=== PATIENT | male | born 1950 | race Caucasian/White ===

== ENCOUNTER 2019-08-28 08:08 | Inpatient (IN) ==
--- NOTE | 2019-08-16 07:52 | ANES ---
Anesthesia Pre Procedure Eval HOME MEDICATIONS albuterol sulfate 90 mcg/actuation aerosol inhaler 2 inh IH Q8H PRN 07/11/19 [Last Taken Unknown] aspirin 81 mg tablet,delayed release 81 mg PO DAILY 07/11/19 [Last Taken Unknown] cetirizine 10 mg tablet 5 mg PO DAILY 07/11/19 [Last Taken Unknown] cholecalciferol (vitamin D3) 50 mcg (2,000 unit) capsule 2,000 unit PO DAILY 07/11/19 [Last Taken Unknown] docusate sodium 100 mg capsule 100 mg PO DAILY 07/11/19 [Last Taken Unknown] furosemide 40 mg tablet 40 mg PO QAM 07/11/19 [Last Taken Unknown] glipizide 5 mg tablet 5 mg PO DAILY 07/11/19 [Last Taken Unknown] losartan 25 mg tablet 12.5 mg PO DAILY tab 07/11/19 [Last Taken Unknown] metformin 500 mg tablet 1,000 mg PO BID tab 07/11/19 [Last Taken Unknown] metoprolol succinate 100 mg capsule sprinkle, ext. release 24 hr 150 mg PO BID ea 07/11/19 [Last Taken Unknown] omeprazole 20 mg capsule,delayed release 20 mg PO DAILY 07/11/19 [Last Taken Unknown] oxybutynin chloride 5 mg tablet 5 mg PO TID PRN 07/11/19 [Last Taken Unknown] potassium citrate 10 mEq (1,080 mg) tablet,extended release 10 meq PO DAILY 07/11/19 [Last Taken Unknown] simvastatin 40 mg tablet 40 mg PO DAILY 07/11/19 [Last Taken Unknown] spironolactone 25 mg tablet 25 mg PO DAILY 07/11/19 [Last Taken Unknown] tamsulosin 0.4 mg capsule 0.4 mg PO DAILY 07/11/19 [Last Taken Unknown] Allergies/Adverse Reactions: Allergies Allergy/AdvReac Type Severity Reaction Status Date / Time cortisone Allergy Mild RASH Verified 08/15/19 11:12 - Planned Procedure Planned Procedure: Right Total Knee Arthroplasty Medication List Reviewed:: Yes Allergies Verified: Yes Medical History (Last Reviewed 08/16/19 @ 07:49 by Stalin Pires CRNA) Diabetes mellitus (Chronic) Aortic aneurysm (Chronic) Onset Date: ~2015 5.3 in size PTSD (post-traumatic stress disorder) (Chronic) Ventricular fibrillation (Chronic) Sleep apnea (Chronic) Pain in right knee (Chronic) Osteoarthritis of knee (Chronic) Obesity (Chronic) Myocardial degeneration (Chronic) Low back pain (Chronic) Lumbago without sciatica (Chronic) Joint pain (Chronic) Insomnia (Chronic) Impotence (Chronic) GERD (gastroesophageal reflux disease) (Chronic) Chronic systolic congestive heart failure (Chronic) Chest pain (Chronic) Automatic implantable cardiac defibrillator in situ (Chronic) Amnestic disorder (Chronic) Umbilical hernia Surgical History (Last Reviewed 08/16/19 @ 07:49 by Stalin Pires CRNA) Hip joint replacement status Onset Date: ~2008 Right hip- [place] History of left knee replacement Onset Date: ~2014 [facility] History of tonsillectomy Family History (Last Reviewed 08/16/19 @ 07:49 by Stalin Pires CRNA) Father Hypertension Mother Hypochondria Paranoid schizophrenia - Family Anesthesia History Family History:: no untoward family reactions to anesthesia - Airway/Neck/Teeth Within Normal Limits:: Yes Teeth Condition: intact Denture Type: None Neck Exam: limited range of motion Mallampatti Score: 3 Thyromental (T-M) distance: > 6 cm Mandibulo Hyoid distance: > 3 cm - Respiratory Respiratory Physical: lungs clear Smoking Status: Former smoker Sleep Apnea currently treated: No Sleep Apnea by current assessment: Yes Discussed Risks/Treatment of MONSE: Yes - Cardiovascular Cardiac History: CAD, hypertension, other - implanted defibrillator Tolerate Activity: Poor Heart Sounds: Irregular - Gastrointestinal NPO since: instructed npo after mn - Anesthesia Assessment and Plan ASA Class: PS, III Anesthesia Type Plan: Spinal - adductor canal block Planned difficult intubation/equipment available: No
[~2019-08-28 08:08] MED LIST: MORPHINE SULFATE 15 MG TABLET.SA PO PRN; ROPIVACAINE HCL/PF 100 MG, EPINEPHrine 0.2 MG, KETOROLAC TROMETHAMINE 30 MG in NORMAL S... IJ PRN; TRANEXAMIC ACID 1,000 MG in NORMAL SALINE 100 ML IV PRN; ceFAZolin SODIUM 1 GM VIAL IV PRN
[2019-08-28] MEDS ORDERED: BUPIVACAINE HCL/EPINEPHRINE/PF 30 ML VIAL IJ ONE (08:16)
[2019-08-28] MEDS ORDERED: MIDAZOLAM HCL/PF 1 MG/ML VIAL ONE ×2 (08:16→09:20)
[2019-08-28] MEDS ORDERED: EPINEPHrine 1 MG/ML AMPUL ONE (08:16)
[2019-08-28] MEDS ORDERED: PROPOFOL VIAL IV ONE (08:16)
[2019-08-28] MEDS ORDERED: ceFAZolin SODIUM 1 GM VIAL ONE (08:41)
[2019-08-28] MEDS: RINGER'S SOLUTION,LACTATED 1,000 ML IV PRN ×2 (09:42→11:10)
--- NOTE | 2019-08-28 11:51 | ANES ---
Anesthesia Procedure Note Procedure Note: ANESTHESIA PROCEDURE NOTE Date of Procedure: 08/28/2019 Time of procedure: 10:20 AM. Performed by: KIMO Reynolds CRNA, MSN Computational Biologist: Mayra Kenny RN. Preprocedure diagnosis: Post total knee arthroplasty pain. Post procedure diagnosis: Same. Procedure: Right adductor Canal Block. Indications: Post right total knee arthroplasty pain relief. Findings: See below. Details of the procedure: The patient was brought to OR #2 and placed in supine position. The patient's right femoral area to the knee was prepped with chlorhexidine and using ultrasound guidance the right femoral artery and nerve was identified and then followed to the level of the adductor canal. Lidocaine 1% was infiltrated to the skin of the intended injection site. Under ultrasound guidance the saphenous nerve was approached with visualization of a 4 inch shielded block needle. Once saphenous nerve was identified with proximity to the needle tip, the saphenous nerve was surrounded with 25 mL bupivacaine 0.5% with 1-200,000 epinephrine. Please see radiology/ultrasound report for details and retained images of the procedure. EBL: 0 Fluids: N/A. Specimen: N/A. Post procedure condition: The patient tolerated the procedure well. No complications were noted. Thank you for this consultation. John Santiago CRNA, ARNP, MSN
[2019-08-28] MEDS ORDERED: MORPHINE SULFATE 2 MG/ML DISP.SYRIN IV PRN (12:48)
[2019-08-28] MEDS ORDERED: ZOLPIDEM TARTRATE 5 MG TABLET PO PRN (12:48)
[2019-08-28] MEDS ORDERED: MAG HYDROX/ALUMINUM HYD/SIMETH 30 ML UDC PO PRN (12:48)
[2019-08-28] MEDS ORDERED: ONDANSETRON HCL/PF 2 MG/ML VIAL IV PRN (12:48)
[2019-08-28] MEDS ORDERED: RINGER'S SOLUTION,LACTATED 1,000 ML IV PRN (12:48)
[2019-08-28] MEDS ORDERED: diphenhydrAMINE HCL 50 MG/ML VIAL IV PRN (12:48)
[2019-08-28] MEDS ORDERED: MAGNESIUM HYDROXIDE 30 ML UDC PO PRN (12:48)
[2019-08-28] MEDS ORDERED: ACETAMINOPHEN 500 MG TABLET PO PRN (12:48)
[2019-08-28] MEDS ORDERED: ALBUTEROL SULFATE 2.5 MG/0.5 ML VIAL.NEB IH PRN (12:50)
[2019-08-28] MEDS ORDERED: OXYBUTYNIN CHLORIDE 5 MG TABLET PO PRN (12:50)
--- NOTE | 2019-08-28 12:55 | OR ---
Operative Report - Dictated Report Narrative: Date: 08/28/2019 Preoperative diagnosis: Right knee degenerative joint disease. Postoperative diagnosis: Right knee degenerative joint disease. Procedure: Right total knee arthroplasty. Surgeon: Que Quinones M.D. Command And Control Specialist: Jovanni Recinos PA-C (provided and essential set of skilled, educated hands that assisted with transfer, positioning, prepping, draping, manipulation, retraction, placement of jigs, injection, insertion of implants, irrigation, closure wounds, and dressings all of which could not be performed by the available surgical crew) Anesthesia: Spinal with regional block, general, and local periarticular joint injection. Complications: None Specimens: Bone. Estimated blood loss: Minimal. Tourniquet time: 100 Minutes at 325 millimeters of mercury. Retained implants: Depuy Attune size 6 right lugged cemented posterior stabilized femoral component . Size 6 fixed-bearing cemented tibial platform. 6 by 7 millimeter posterior stabilized cross-linked tibial insert. 38 millimeter medialized patella button. Indications: Mr. Grove is a 69-year-old gentleman who has had longstanding right knee pain and arthrosis. This patient was followed in my clinic for period of time with significant complaints of right knee pain consistent with arthritic ch anges. He had failed conservative measures including, but not limited to, activity modification, passage of time, medications, and other conservative measures. Patient wished to proceed with surgical treatment. The risks, benefits, and alternatives were discussed in clinic. The risks of , blood clots, bleeding, infection, nerve/tendon blood vessel/ injury, malposition of components, intraoperative fracture, postoperative limited range of motion, persistent pain, failure of components, and need for additional procedures. Patient wished to proceed consent was obtained after answering all questions. Procedure: After marking the correct extremity on the floor, the patient was taken to the operating room. A timeout was performed. IV antibiotics consisting of Ancef were administered prior to the procedure. A regional followed by spinal anesthetic was induced by anesthesia, per my request, however he continued to have sensation and motor to his leg as we started the procedure and thus he was converted to a general anesthetic on the operative table with all bony prominences well-padded. Lilly catheter was placed, and a bump was placed under the operative side buttock. SCDs and NADYA hose were utilized on the nonoperative leg. A well-padded tourniquet was applied to the operative thigh. The operative leg was then pre-scrubbed with alcohol, prepped, and draped in a standard sterile fashion. After exsanguinating the extremity with an Esmarch bandage, the tourniquet was inflated. After marking out the anterior knee for standard incision centered over the patella, the skin was incised and dissected down to the joint retinaculum. The joint retinaculum was marked out as well as the horizontal axis of the patella, and a standard medial parapatellar arthrotomy was then made. The most proximal aspect of the quadriceps tendon and the patella tendon insertion were protected from release. A partial synovectomy was performed as well as a resection of the infrapatellar fat pad. The distal femoral fat pad proximal to the trochlea was also resected using cautery. The soft tissues were elevated off the medial aspect of the proximal tibia using a Batres elevator ensuring that we did not transect the medial collateral ligament. Upon initial evaluation range of motion was approximately 0 degrees to 120 degrees of flexion. There were signs of advanced arthrosis in the medial, lateral, and patellofemoral joint spaces. There were large marginal osteophytes which were removed with a rongeur. The knee was hyperflexed and the patella was tucked laterally. Protecting the surrounding soft tissues with Homans, an entry drill was placed down the femoral canal using Whitesides line for guidance into the entry point. The intramedullary femoral alignment lucy was utilized in order to cut the distal femur in 5 degrees of valgus resecting 10 millimeters of bone. Next the distal femur was sized to a size 6. A posterior referencing guide was utilized to place the distal femoral cutting block in 3 degrees of external rotation. This was pinned into place. The rotation was confirmed both visually and based on anatomic landmarks. The 4 in 1 cutting jig of the appropriate size was utilized in order to make all bony cuts. The daniel wing was used to ensure no notching. Retractors were utilized in order to protect surrounding soft tissues. This cut did not result in any excessive notching. We then cut the box centered over the distal femur. This allowed for resection of the anterior and posterior cruciate ligaments. I then turned my attention to the preparation of the tibia. Using an extra medullary tibial alignment lucy, 4 millimeters of bone was resected off the medial articular surface. This was made perpendicular to the mechanical axis of the joint with the alignment lucy centered over the ankle mortise. The alignment lucy was checked and was noted to be parallel to the mechanical axis, centered over the medial one third of the tibial tubercle, paralleling the anterior surface of the tibia. We then turned our attention to the remaining meniscus and soft tissues. These were removed while protecting the surrounding ligaments and soft tissues. The marginal osteophytes off the anterior, posterior, medial, lateral aspects of the femur and tibia were removed. The tibia was sized out to a size 6. Next the tibia was drilled and punched in an externally rotated position. Next the trial femur and a series of tibial inserts were utilized in order to allow for full extension and maximal flexion. It was found that a 7 millimeter insert gave the best range of motion and stability at multiple flexion points as well as at full extension there was less than 2 mm of gapping both medially and laterally. There is minimal anterior translation with the knee at 90 degrees of flexion and no signs of being able to dislocate the knee. The patella was then prepared. The initial thickness was 23 millimeters. This was reamed down to 13 millimeters parallel to the anterior surface of the patella. It was sized out to a size 38 medialized patella button. This was then drilled and trialed. Without any medial restraint the patella tracked appropriately and did not sublux or dislocate. At this point, it was felt these were the appropriate sized implants, and all trials were removed. The standard periarticular joint injection consisting of ropivacaine, Toradol, and epinephrine were injected into the periarticular joint tissues. The bony surfaces were thoroughly irrigated with a pulsatile-suction saline irrigation device. A bone plug from the prior resected anterior chamfer cut was placed into the drill hole at the distal femur. The bony surfaces were then dried in preparation for placement of the implants. The cement was vacuum mixed per the wind site manager's instructions. The cement was placed on the dry bony surfaces and posterior aspect of the implants. The implants were impacted into place, removing all extruded cement. At this point anesthesia administered tranexamic acid per protocol intravenously. The knee was placed in extension with axial loading with the trial insert while the cement cured. Once the cement cured, all remaining extruded cement was removed. The knee was placed through a range of motion with the trial insert to ensure appropriate range of motion and stability. Final range of motion was approximately 0 to 120 degrees. The knee was again thoroughly irrigated with pulsatile saline lavage. The final polyethylene insert was then impacted into place ensuring no retained soft tissues. The remaining periarticular joint injection was injected. A medium Hemovac drain was placed exiting superior laterally. The knee was then placed over a triangle and the arthrotomy was closed with interrupted #1 Vicryl after thoroughly irrigating the joint. The deep and subcutaneous tissues were closed with interrupted 0 and 3-0 Vicryl respectively. Skin was closed with a running subcutaneous 3-0 Monocryl and Prineo Dermabond dressing. 4 x 4's, Sof-Rol, and a full leg Travon wrap were applied. All sponge, needle, blade, and instrument counts were correct prior to closing the wounds. Postoperative condition: The patient was awoken and transferred to the postanesthesia care unit in stable condition. Plan is to be admitted to the inpatient medical/surgical floor postoperatively for 24 hours of IV antibiotics, physical therapy, occupational therapy, and medical comanagement. Patient will be weightbearing as tolerated with range of motion as tolerated. DVT prophylaxis will be with SCDs, NADYA hose, and pharmacological anticoagulation. Anticipated hospital stay is approximately 1-3 days.
--- NOTE | 2019-08-28 13:10 | ANES ---
Post Anesthesia Discharge - Transfer of Care Transfer of Care handoff given to nurse: Yes - Discharge from PACU Discharge from PACU when meets criteria: Yes - Discharge to ASU Discharge to ASU-no complications/pt stable: Yes
[2019-08-28] MEDS ORDERED: fentaNYL CITRATE/PF 50 MCG/ML AMPUL ONE (13:17)
--- NOTE | 2019-08-28 13:30 | ANES ---
Post Anesthesia Assessment - Vital Signs Vitals: Last Vital Signs Temp 36.8 C 08/28/19 13:25 Pulse 72 08/28/19 13:25 Resp 12 08/28/19 13:25 BP 117/84 08/28/19 13:25 Pulse Ox 97 08/28/19 13:25 Airway Patency: Normal - Mental Status Level Of Consciousness: Awake, Alert, Appropriate - Pain Level Pain Score: 6 - N/V Assessment Nausea/Vomiting Presence: None Dehydration:: No
[2019-08-28] MEDS: KETOROLAC TROMETHAMINE 15 MG/ML VIAL IV SCH ×2 (13:52→19:20)
[2019-08-28] MEDS: oxyCODONE HCL/ACETAMINOPHEN 1 TAB TABLET PO PRN (14:57)
[2019-08-28] MEDS: ceFAZolin SODIUM 1 GM in DEXTROSE 5 % IN WATER 100 ML IV SCH ×4 (14:59→21:45)
[2019-08-28] MEDS ORDERED: TAMSULOSIN HCL 0.4 MG CAP.SR.24H PO SCH (18:00)
[2019-08-28] MEDS ORDERED: SENNOSIDES/DOCUSATE SODIUM 1 TAB TABLET PO SCH (21:00)
[2019-08-28] MEDS ORDERED: METOPROLOL SUCCINATE PO SCH (21:00)
[2019-08-28] MEDS: METOPROLOL SUCCINATE 100 MG, METOPROLOL SUCCINATE 50 MG PO SCH ×2 (21:46)
[2019-08-29] MEDS: oxyCODONE HCL/ACETAMINOPHEN 1 TAB TABLET PO PRN ×3 (00:40→13:11)
[2019-08-29] MEDS: KETOROLAC TROMETHAMINE 15 MG/ML VIAL IV SCH ×3 (00:46→12:41)
[2019-08-29] MEDS: ceFAZolin SODIUM 1 GM in DEXTROSE 5 % IN WATER 100 ML IV SCH ×2 (03:55)
[2019-08-29 06:27] LABS: Anion Gap 13.2 mmol/L (6.8-13.8); BUN/Creatinine Ratio 17.3 (9.0-21.6); Calcium * 8.3 mg/dL (7.9-10.9); Estimated Creat Clear 63.3; Potassium 4.2 mmol/L (3.4-4.6)
[2019-08-29 06:29] LABS: Hematocrit 34.5 % (42.0-52.0); Hemoglobin 10.8 gm/dL (13.5-18.0); Mean Cell Volume 86.7 fl (78-100); Mean Corpuscular Hemoglobin 27.1 pg (27-31); Mean Corpuscular Hgb Conc 31.3 g/dl (32-36); Mean Platelet Volume 11.5 fl (8-11.3); Platelet Count 263 K/mm3 (150-450); Red Blood Count 3.98 M/mm3 (4.7-6.0); Red Cell Distribution Width 12.8 % (11.5-14.0); White Blood Count 13.2 K/mm3 (4.0-10.5)
[2019-08-29] MEDS ORDERED: PANTOPRAZOLE SODIUM 20 MG TABLET.DR PO SCH (07:00)
[2019-08-29] MEDS: METOPROLOL SUCCINATE 100 MG, METOPROLOL SUCCINATE 50 MG PO SCH ×2 (08:25)
[2019-08-29] MEDS ORDERED: DOCUSATE SODIUM 100 MG CAPSULE PO SCH (09:00)
[2019-08-29] MEDS ORDERED: LOSARTAN POTASSIUM 50 MG TABLET PO SCH (09:00)
[2019-08-29] MEDS ORDERED: POTASSIUM CHLORIDE 10 MEQ TABLET.SA PO SCH (09:00)
[2019-08-29] MEDS ORDERED: FUROSEMIDE 40 MG TABLET PO SCH (09:00)
[2019-08-29] MEDS ORDERED: LORATADINE 10 MG TABLET PO SCH (09:00)
[2019-08-29] MEDS ORDERED: glipiZIDE 5 MG TABLET PO SCH (09:00)
[2019-08-29] MEDS ORDERED: SPIRONOLACTONE 25 MG TABLET PO SCH (09:00)
[2019-08-29] MEDS ORDERED: ENOXAPARIN SODIUM 40 MG/0.4 ML SYRG SC SCH (11:48)
--- NOTE | 2019-08-29 15:14 | DS ---
(1) Status post right knee replacement Problem: Acute (2) Acute blood loss anemia Problem: Acute (3) Diabetes mellitus Problem: Chronic (4) PTSD (post-traumatic stress disorder) Problem: Chronic (5) Ventricular fibrillation Problem: Chronic (6) Sleep apnea Problem: Chronic (7) Obesity Problem: Chronic (8) GERD (gastroesophageal reflux disease) Problem: Chronic (9) Chronic systolic congestive heart failure Problem: Chronic Date of Discharge:: 08/29/19 Hospital Course: Mr. Grove was admitted to the floor after undergoing right total knee arthroplasty. Tolerated this well. Was admitted to the floor postoperatively for 24 hours of IV antibiotics, pain control, medical comanagement, and occupational and physical therapy. OT and PT were consulted to assist with activities of daily living and ambulation. Was made weightbearing as tolerated with range of motion as tolerated. Pain was initially controlled with IV regimen. This was transitioned to oral once tolerating a by mouth intake. Was resumed on home diet and medications. Had a Lilly catheter inserted and the operating room which was discontinued on postoperative day 1. A drain was place d intraoperatively into the knee which was discontinued on postoperative day 1. Lovenox SCD and NADYA hose were utilized for DVT prophylaxis. Vital signs remained stable to the hospital course. Serial labs were obtained which showed a final hemoglobin of 10.8 grams down from 12.3 g preoperatively. BMP was reviewed and was stable. Physical examination throughout the hospital course showed an extremity that had sensation that was intact to light touch, palpable pulses, a benign wound, motor intact to the toes, ankle, and knee. Knee range of motion was approximately 5 degrees to 60 degrees. Once an oral pain regimen was tolerated and physical therapy goals were met, it was felt that they were stable for discharge to home. Instructions: Continue with weightbearing as tolerated and range of motion as tolerated. It is OK to shower on the wound if it is not draining. If you note any drainage or for comfort you can cover with dry gauze and tape. Change every 2-3 days as needed. Continue with physical therapy. Resume home diet. Report any fever over 101.5 Fahrenheit, uncontrolled pain, increased drainage, foul odor of drainage, new or increased calf pain or shortness of breath, or any other significant complaints. A 325mg dialy aspirin will be started after finishing anticoagulation if not allergic. Continue with NADYA hose on the operative extremity until instructed otherwise. No driving until instructed otherwise. Follow up in approximately 10-14 days. Procedures Performed: see notes below List Procedures: Right total knee arthroplasty Results and Findings: Lab Pending Results 08/29/19 06:15: WBC 13.2 H, RBC 3.98 L, Hgb 10.8 L, Hct 34.5 L, MCV 86.7, MCH 27.1, MCHC 31.3 L, RDW 12.8, Plt Count 263, MPV 11.5 H 08/29/19 06:15: Sodium 137, Plasma Sodium 138, Potassium 4.2, Chloride 101, Carbon Dioxide 27.0, Anion Gap 13.2, BUN 18, Creatinine 1.04, Est GFR (Non-Af Amer) 75, BUN/Creatinine Ratio 17.3, Random Glucose 162 H, Calcium 8.3 Discharge Location: Home Disposition: Home self-care Condition: Good Discharge Activity: Activity as tolerated, Weight bearing, Other - With wheeled walker Discharge Diet: Consistent carbs, Low salt, Low fat/chol Referrals: Que Quinones MD [Staff Physician] - 09/19/19 9:45 am Problem Oriented Discharge Instructions to Patient/Family: Total Knee Replacement, Care After, [id number] Additional Patient Instructions (free text): Physical Therapy at [facility] scheduled for 08-31-19 at 11:00am. Post-op follow up appointment scheduled in the office with Dr. Quinones on 09-19-19 at 9:45am. Prescriptions (Any new or edited meds): Enoxaparin Sodium [Lovenox] 40 mg SC Q24H #7 disp.syrin Transmission Status: Pending to [facility] #[id number] oxyCODONE HCL/ACETAMINOPHEN [Percocet 5 MG/325 MG] 2 tab PO Q4H PRN #56 tab PRN Reason: Moderate Pain (Pain Scale 4-6) Transmission Status: Received by [facility] #[id number] Sennosides/Docusate Sodium [Senokot-S] 2 tab PO HS #30 tab Transmission Status: Pending to [facility] #[id number] Complete Home Medications List: Complete Home Medication List: albuterol sulfate 90 mcg/actuation aerosol inhaler 2 inh IH Q8H PRN 07/11/19 aspirin 81 mg tablet,delayed release 81 mg PO DAILY 07/11/19 cetirizine 10 mg tablet 5 mg PO DAILY 07/11/19 docusate sodium 100 mg capsule 100 mg PO DAILY 07/11/19 furosemide 40 mg tablet 40 mg PO QAM 07/11/19 glipizide 5 mg tablet 5 mg PO DAILY 07/11/19 losartan 25 mg tablet 12.5 mg PO DAILY tab 07/11/19 metformin 500 mg tablet 1,000 mg PO BID tab 07/11/19 omeprazole 20 mg capsule,delayed release 20 mg PO DAILY 07/11/19 oxybutynin chloride 5 mg tablet 5 mg PO TID PRN 07/11/19 potassium citrate 10 mEq (1,080 mg) tablet,extended release 10 meq PO DAILY 07/11/19 simvastatin 40 mg tablet 40 mg PO DAILY 07/11/19 spironolactone 25 mg tablet 25 mg PO DAILY 07/11/19 tamsulosin 0.4 mg capsule 0.4 mg PO DAILY 07/11/19 Metoprolol Succinate 150 mg PO DAILY 08/28/19 Enoxaparin Sodium [Lovenox] 40 mg SC Q24H #7 disp.syrin 08/29/19 Sennosides/Docusate Sodium [Senokot-S] 2 tab PO HS #30 tab 08/29/19 oxyCODONE HCL/ACETAMINOPHEN [Percocet 5 MG/325 MG] 2 tab PO Q4H PRN #56 tab 08/29/19 Amb Orders for Discharge: PT Evaluation and Treatment* Facility: [facility], Location: Rehabilitation Services
[2019-08-29 15:48] VITALS: BP 130/50
[2019-08-29] MEDS ORDERED: SIMVASTATIN 40 MG TABLET PO SCH (21:00)
== END 2019-08-29 15:55 | disposition home or self-care (01) | DRG 470 ==
LOC: MS 08:08 → EDSTATUS 09:45
PROVIDERS: ADMIT Orthopaedic Surgery; ATTEND Orthopaedic Surgery
DX: M17.11 Unilateral primary osteoarthritis, right knee; E66.9 Obesity, unspecified; Z95.810 Presence of automatic (implantable) cardiac defibrillator; K21.9 Gastro-esophageal reflux disease without esophagitis; I50.22 Chronic systolic (congestive) heart failure; G47.30 Sleep apnea, unspecified; E11.9 Type 2 diabetes mellitus without complications; F43.12 Post-traumatic stress disorder, chronic; D62 Acute posthemorrhagic anemia; I11.0 Hypertensive heart disease with heart failure; Z68.42 Body mass index [BMI] 45.0-49.9, adult
CPT/HCPCS: 36415; 73560; 80048; 85027; 97110; 97116; 97161; 97165; 97535